=== PATIENT | female | born 2000 | race Caucasian/White ===

== ENCOUNTER 2022-06-23 15:31 | Outpatient (CLI) | payer OTHER, SELFPAY ==
[2022-06-23 18:49] LABS: Hepatitis B Surface Antigen* Negative (Negative)
[2022-06-23 18:57] LABS: HIV 1/2/P24 Combo Screen* Negative (Negative)
[2022-06-23 19:06] LABS: Hepatitis C Virus Antibody* Negative (Negative)
[2022-06-23 21:41] LABS: Chlamydia DNA Amplified* NOT DETECTED (No Detected); GC DNA Amplified* NOT DETECTED (No Detected)
[2022-06-26 01:13] LABS: Rapid Plasma Reagin (RPR) Non Reactive (Non Reactive)
== END 2022-06-23 15:32 | disposition home or self-care (01) ==
PROVIDERS: Visit Provider Registered Nurse
DX: N92.6 Irregular menstruation, unspecified (principal); Z11.3 Encounter for screening for infections with a predominantly sexual mode of transmission; Z11.4 Encounter for screening for human immunodeficiency virus [HIV]
CPT/HCPCS: 84443; 86592; 86703; 86803; 87340; 87491; 87591

== ENCOUNTER 2023-07-20 11:04 | Outpatient (CLI) | payer OTHER, SELFPAY | END 2023-07-20 11:05 | disposition home or self-care (01) | LOC: NFLDREF 11:05 | PROVIDERS: Visit Provider Registered Nurse | DX: Z01.419 Encounter for gynecological examination (general) (routine) without abnormal findings (principal); Z11.3 Encounter for screening for infections with a predominantly sexual mode of transmission | CPT/HCPCS: 87491; 87591 ==